=== PATIENT | male | born 1985 | race Caucasian/White ===

== ENCOUNTER 2022-09-09 01:27 | Emergency (ER) | payer OTHER ==
[2022-09-09 01:38] VITALS: BP 135/79; PULSE 75; RESP 16; TEMP 98.1; BMI 32.7
== END 2022-09-09 04:49 | disposition home or self-care (01) ==
LOC: JER 01:27
DX: S39.012A Strain of muscle, fascia and tendon of lower back, initial encounter (principal); S86.912A Strain of unspecified muscle(s) and tendon(s) at lower leg level, left leg, initial encounter; Y99.8 Other external cause status
CPT/HCPCS: 72100-TC-FY; 73562-TC-LT-FY; 99284-25